=== PATIENT | female | born 1955 | race Asian ===

== ENCOUNTER 2017-10-09 11:40 | Day surgery (SDC) | payer OTHER ==
[2017-10-09] MEDS ORDERED: MIDAZOLAM 1 MG/ML 2 ML INJ ×2 (13:57)
[2017-10-09] MEDS ORDERED: FENTAnyl 50 MCG/ML VIAL (13:57)
== END 2017-10-09 14:18 | disposition home or self-care (01) ==
LOC: GIL 11:40
DX: Z12.11 Encounter for screening for malignant neoplasm of colon (principal); D12.5 Benign neoplasm of sigmoid colon; K64.8 Other hemorrhoids
CPT/HCPCS: 45380; 88305